=== PATIENT | female | born 1980 | race Caucasian/White ===

== ENCOUNTER 2017-09-17 01:06 | Observation (INO) | payer BC ==
[~2017-09-17] VITALS: Ht 170.2 cm; Wt 90.7 kg
[~2017-09-17 01:06] MED LIST: ESCI20TA38 PO; IBU800 PO; PER PO; TRET20CR37 TP
[2017-09-17] MEDS ORDERED: MIDAZOLAM 2 MG/2 ML VIAL IVP ONE (06:30)
[2017-09-17] MEDS ORDERED: cefOXitin/DEX(*) 2GM/50ML PREM 50 ML IVPB ONE (06:30)
[2017-09-17] MEDS ORDERED: PHENAZOPYRIDINE 200 MG TAB PO ONE (06:30)
[2017-09-17] MEDS ORDERED: LIDOCAINE/SOD BICARB 8.4% SYR ID ONE (06:30)
[2017-09-17] MEDS ORDERED: FAMOTIDINE 20 MG TAB PO ONE (06:30)
[2017-09-17] MEDS ORDERED: NORMOSOL R SOLN(*) 1000 ML BAG 1,000 ML IV PRN (06:30)
[2017-09-17 11:36] LABS: PLATELET COUNT, AUTOMATED 296 K/uL (150-450)
[2017-09-17] MEDS ORDERED: FAMOTIDINE(*) 20MG/50ML PREMIX 50 ML IVPB ONE (12:10)
[2017-09-17] MEDS ORDERED: ROPIVACAINE 0.2% 20 ML VIAL ONE (12:39)
[2017-09-17] MEDS ORDERED: NS(*) 0.9% 250 ML BAG 250 ML ONE (12:40)
[2017-09-17] MEDS ORDERED: VASOPRESSIN 20 UNIT/ML VIAL ONE (12:40)
[2017-09-17] MEDS ORDERED: fentaNYL CITR 250 MCG/5 ML AMP ONE (12:53)
[2017-09-17] MEDS ORDERED: LIDOCAINE 2% IV 100 MG/5ML SYR ONE (12:55)
[2017-09-17] MEDS ORDERED: DEXAMETHASONE SOD 4 MG/ML VIAL ONE (13:05)
[2017-09-17] MEDS ORDERED: ONDANSETRON 4 MG/2 ML VIAL ONE (13:06)
[2017-09-17] MEDS ORDERED: KETOROLAC 30 MG/ML VIAL ONE (13:06)
[2017-09-17] MEDS ORDERED: fentaNYL CITR 100 MCG/2 ML AMP ONE ×4 (13:31→15:43)
[2017-09-17] MEDS ORDERED: SUGAMMADEX SOD 200 MG/2 ML SDV ONE (14:33)
--- NOTE | 2017-09-17 15:06 | Post Operative Note ---
Operative Note - MONOLOGIST Operative Day Date: Sep 17, 2017 Time: 15:05 Physicians Surgeon: Page Manager Regional: Mary Anesthesia: GETA Diagnosis Pre-Op Diagnosis: Menorrhagia Post-Op Diagnosis: same Procedure Procedure(s): JOHN BS [facility] Cysto Specimen Removed:(Maybe N/A): uterus Complications: [id number] Fluids Fluids: 1700 ml Estimated Blood Loss: <100 Dictated Date OP Note Dictated: Sep 17, 2017 Time OP Note Dictated: 15:06 Copies to: PHILIPP HUFFMAN MD, TRAVIS MD Sep 17, 2017 15:06
[2017-09-17] MEDS ORDERED: ZOLPIDEM TARTRATE 10 MG TAB PO PRN (15:10)
[2017-09-17] MEDS ORDERED: PROMETHAZINE 25 MG/ML 1 ML AMP IVP PRN (15:10)
[2017-09-17] MEDS ORDERED: ACETAMINOPHEN 325 MG TAB PO PRN (15:10)
[2017-09-17] MEDS ORDERED: SIMETHICONE 80 MG CHEW CHEW PRN (15:10)
[2017-09-17] MEDS ORDERED: HYDROmorphone HCL 2 MG TAB PO PRN (15:10)
[2017-09-17] MEDS ORDERED: ONDANSETRON 4 MG/2 ML VIAL IV PRN (15:10)
[2017-09-17] MEDS ORDERED: BELLADONNA ALK/OPIUM 60MG SUPP PR ONE ×2 (15:17→21:00)
[2017-09-17 16:15] VITALS: BP 126/83
[2017-09-17 16:30] VITALS: BP 127/80
[2017-09-17 16:45] VITALS: BP 129/78
[2017-09-17] MEDS: DLR(*) 1000 ML BAG 1,000 ML IV PRN ×2 (16:52→23:10)
[2017-09-17 17:00] VITALS: BP 133/81
[2017-09-17 17:17] VITALS: BP 131/83
[2017-09-17] MEDS: KETOROLAC 30 MG/ML VIAL IVP SCH (18:39)
[2017-09-17 19:30] VITALS: BP 130/83
--- NOTE | 2017-09-17 19:58 | OPERATIVE REPORT 1 ---
EVENT DATE: September 17, 2017 SURGEON: Sylvester Abel MD ANESTHESIOLOGIST: Alin Thomas MD ANESTHESIA: General endotracheal. CREW LEADER/CONTROL ROOM OPERATOR: Hardik Hernandez MD PREOPERATIVE DIAGNOSES 1. Menorrhagia. 2. Desired sterilization. 3. Previous section times two. POSTOPERATIVE DIAGNOSES 1. Menorrhagia. 2. Desired sterilization. 3. Previous section times two. PROCEDURES PERFORMED 1. Laparoscopic-assisted vaginal hysterectomy. 2. Bilateral salpingectomy. 3. Modified Fox culdoplasty. 4. Diagnostic cystoscopy. ESTIMATED BLOOD LOSS Less than 100 mL. FLUIDS Crystalloid 1700 mL IV. FINDINGS Enlarged uterus with boggy appearance and some white discoloration to the serosa. Both tubes were previously ligated, and the ovary was adherent to the tubes. Normal-appearing pelvis otherwise. PROCEDURE IN DETAIL The patient was brought to the operating room with a working IV and placed in the dorsal supine position. She was placed under general endotracheal anesthesia and then moved to the dorsal lithotomy position. She was prepped and draped in the usual sterile fashion. A weighted speculum was placed in the vagina. The cervix was grasped on the anterior lip with a single-toothed tenaculum. It was carefully sounded to a depth of 11 cm. The size 10 SUSANNE uterine manipulator was selected and assembled. The cervix was carefully dilated to accommodate, and it was then passed through the cervix into the uterus. The bulb was inflated and secured, and all other instruments were then removed. A Griffin catheter was placed. The legs were brought back to the supine position, and gloves were changed. The umbilicus was infiltrated with 0.2% Naropin. A 5 mm stab incision was made. A Veress needle was passed through this incision while elevating and stabilizing the anterior abdominal wall. A pneumoperitoneum was created through to an intra-abdominal pressure of 20 mmHg. This was reduced to 15 mmHg after all ports had been placed. The Veress needle was removed. A 5 mm bladeless trocar was passed through the umbilical incision under direct visualization with the scope and while stabilizing the anterior abdominal wall. It was performed without incident in a controlled fashion. The same procedure was followed on two additional 5 mm ports placed in the right and left lower quadrants utilizing a similar technique. The patient was then moved to the treatment position. The abdomen and pelvis were surveyed with the above findings noted. The left fallopian tube while adherent to the ovary was carefully dissected away from that ovary using the Gyrus device until the mesosalpinx was free. It was dissected away from the pelvis through the mesosalpinx up to the utero-ovarian ligament. This was then cauterized with the Gyrus device and transected, including the round ligament on this side. This opened the broad ligament which was into anterior and posterior leaflets. The anterior leaflet was followed along the anterior uterus, and careful dissection in that location was performed to dissect the bladder away from the operative area. The bladder was pushed back exposing the cervix. The posterior leaflet of the broad ligament was taken down , exposing the uterine vasculature which was cauterized. The same procedure was followed on the contralateral side, dissecting the fallopian tube away from the ovary, freeing up the mesosalpinx, dissecting through this mesosalpinx, and excising the tube away from the pelvis up to the utero-ovarian ligament which was cauterized and transected. The round ligament was then cauterized and transected, exposing the broad ligament also on this side. It was into anterior and posterior leaflets. The anterior leaflet was dissected along to the anterior bladder reflection. The posterior leaflet was taken down to uterosacral ligament exposing the uterine vasculature which was cauterized. No complications at this point. The pelvis was irrigated. The instruments were removed. The pneumoperitoneum was released. The instruments were secured to the patient's abdomen, and we proceeded laparoscopically placing the patient back in the lithotomy position. The weighted speculum was placed in the vagina. The cervix was grasped with Lisa clamps on the anterior and posterior lip and circumferentially injected with a diluted Pitressin solution. A circumferential incision was made with the Bovie, and the posterior vagina was grasped with the Emilio and put on stretch. The posterior cul-de-sac was then entered sharply using the curved Chisholm scissors. The long-billed weighted speculum was inserted here, and this exposed the uterosacral ligaments which were bilaterally clamped, cut, and suture ligated with Vicryl suture type. These were tagged for later identification. Anteriorly then, sharp dissection was performed to dissect the vaginal mucosa away from the cervix until I had reached the anterior dissection. A right-angle retractor was inserted here, retracting the bladder well away from the operative area. This exposed the cardinal ligaments which were bilaterally clamped, cut, and suture ligated. The remaining vascular pedicle was isolated, clamped, cut, and the specimen was removed and sent to Pathology. The remaining pedicle was suture ligated, although there was still bleeding on the left side which received an additional [id number] stitch and a light amount of cautery for hemostasis. At this point, a modified Fox culdoplasty was performed by securing the ipsilateral uterosacral ligament to the vaginal mucosa and placing external Fxo stitches obliterating the cul-de-sac. The parietal peritoneum was repaired using 2-0 Vicryl in a running pursestring stitch, and the vagina was closed with a 2-0 Vicryl Plus in a running locking stitch. All operative sites were hemostatic at this point. The Griffin catheter was removed, and diagnostic cystoscopy was performed, visualizing the entire bladder and finding it to be without complication. Both ureters were visualized, and excellent urine jets were observed on both sides. The bladder was again drained. All instruments were then removed from the vagina. The legs were brought back to the supine position. Gloves were changed. We proceeded again laparoscopically, reinsufflating the abdomen, and inspecting the surgical results through the laparoscope. All pedicles were hemostatic. The pelvis was irrigated and suctioned dry. No visible complications; therefore, the procedure was terminated. All instruments were removed after suctioning out the pneumoperitoneum. Skin incisions were repaired with a 4-0 Monocryl simple subdermal and covered with Dermabond skin adhesive. She tolerated the procedure well. Sponge, lap, needle, and instrument counts were all correct times three. She was awakened from general anesthesia in stable condition. GHAZAL
[2017-09-17] MEDS: FAMOTIDINE 20 MG TAB PO SCH (20:28)
[2017-09-17] MEDS: DOCUSATE CALCIUM 240 MG CAP PO SCH (20:28)
[2017-09-17] MEDS ORDERED: HYDROmorphone HCL 2 MG TAB PO ONE (21:30)
[2017-09-17] MEDS ORDERED: HYDROmorphone PCA 6 MG/30 ML IV PRN (21:45)
[2017-09-18 00:58] VITALS: BP 116/69
[2017-09-18] MEDS: KETOROLAC 30 MG/ML VIAL IVP SCH ×2 (01:04→07:46)
[2017-09-18 03:09] VITALS: BP 113/63
[2017-09-18 06:07] LABS: PLATELET COUNT, AUTOMATED 251 K/uL (150-450)
[2017-09-18] MEDS ORDERED: DLR(*) 1000 ML BAG 1,000 ML IV PRN (06:07)
[2017-09-18] MEDS: DLR(*) 1000 ML BAG 1,000 ML IV PRN (06:07)
--- NOTE | 2017-09-18 06:09 | OB/GYN Progress Note ---
OB Subjective Progress Notes Subjective Doing well. Was in a lot of pain earlier but controlled with DIRECTOR REPORT now. Nauseated earlier but resolved now. Has tolerated crackers well. GI: NEG Nausea : Voiding Well (some hesitancy but feels like she is emptying) Pain: Mild (currently) OB Objective Physical Exam Vital Signs Date Time Temp Pulse Resp B/P (MAP) Pulse Ox O2 Delivery O2 Flow Rate FiO2 09/18/17 05:00 88 09/18/17 04:20 18 09/18/17 03:09 99.1 63 113/63 (80) Nasal Cannula 1.0 General Appearance: Alert/Awake/No Acute Distress Neurological: No Gross deficits Cardiovascular: Normal Rhythm & Peripheral Pulses, Regular Rate and Rhythm Respiratory: No Respiratory Distress, Clear to Auscultation Abdomen: Soft, Non-Tender, Non-Distended Incision: Clean, Dry, Intact, Dermabond Integumentary: Skin Intact without Lesions or Rash Psychological: Alert & Oriented X3, Appropriate Mood & Affect Result Diagram: 09/17/17 1125 Assessment and Plan SAFETY CONSULTANT Plan: Routine Post-Op Care Problems: (1) Status post laparoscopic hysterectomy Assessment & Plan: Will wean back to pills and continue to bladder train today. If continues well and improving will discharge to home later. F/U in 2 weeks. PHILIPP HUFFMAN MD Sep 18, 2017 06:09
[2017-09-18] MEDS ORDERED: IBUP800T37 PO (06:11)
[2017-09-18] MEDS ORDERED: PER PO (06:11)
[2017-09-18] MEDS ORDERED: HYDR2TAB4 PO (06:11)
--- NOTE | 2017-09-18 06:12 | Short(Outpt) Discharge Summary ---
Discharge Summary Reason for Hosp/Final Diag: (1) Status post laparoscopic hysterectomy Hospital Course & Plan: Will wean back to pills and continue to bladder train today. If continues well and improving will discharge to home later. F/U in 2 weeks. Departure Discharge to: Home, Self Care Discharge Instructions Home Meds Active Scripts Oxycodone/Acetaminophen (OXYCODONE/ACETAMINOPHEN 5MG/325 MG) 5 Mg/325 Mg Tab, 1- 2 TAB PO Q4H Y for PAIN, #30 TAB 0 Refills Prov:PHILIPP ABEL MD 09/18/17 Hydromorphone Hcl (HYDROMORPHONE HCL) 2 Mg Tablet, 2 MG PO Q4H Y for PAIN, #14 TAB 0 Refills Prov:PHILIPP ABEL MD 09/18/17 Tretinoin 0.025% Cream (TRETINOIN 0.025% CREAM) 20 Gm Cream..g., 20 GM TP QHS for 30 Days, #1 TUB 2 Refills Prov:CHAITANYA MENA 08/07/17 Reported Medications Escitalopram Oxalate (LEXAPRO) 20 Mg Tablet, 10 MG PO QDAY, TAB 09/10/17 Follow up Referrals: FITTING SUPERVISOR - In Two Weeks @ [facility] with Philipp Abel Md Diet: Regular Activity: As Tolerated Copies to: PHILIPP ABEL MD, TRAVIS MD Sep 18, 2017 06:12
[2017-09-18 07:15] VITALS: BP 113/64
[2017-09-18] MEDS ORDERED: INFLUENZA VIRUS VAC 0.5 ML SYR IM ONLY ONE (09:00)
[2017-09-18] MEDS: FAMOTIDINE 20 MG TAB PO SCH (09:04)
[2017-09-18] MEDS: DOCUSATE CALCIUM 240 MG CAP PO SCH (09:04)
[2017-09-18 09:15] VITALS: Ht 170.2 cm; Wt 90.7 kg
[2017-09-18] MEDS ORDERED: ROCURONIUM BROM 10 MG/ML 10 ML ONE (12:34)
[2017-09-18] MEDS ORDERED: IBUPROFEN 800 MG TAB PO PRN (13:00)
== END 2017-09-18 06:11 | disposition home or self-care (01) ==
LOC: OR 01:06 → UNDOADMOB 16:14 → PED 16:14
PROVIDERS: ADMIT Obstetrics & Gynecology; ATTEND Obstetrics & Gynecology
DX: Z30.2 Encounter for sterilization (principal); N92.0 Excessive and frequent menstruation with regular cycle
CPT/HCPCS: 36415; 58552; 84703; 85025; 88307; G0378; J0694; J1100; J1885; J2001; J2250; J2405; J2550; J2795; J3010; J3490; J7050

== ENCOUNTER 2017-09-18 20:30 | Emergency (ER) | payer BC ==
[~2017-09-18] VITALS: Ht 170.2 cm; Wt 88.5 kg
[2017-09-18 09:15] VITALS: Ht 170.2 cm; Wt 88.5 kg
[~2017-09-18 20:30] MED LIST changes: +HYDR2TAB4 PO; +IBUP800T37 PO
--- NOTE | 2017-09-18 20:37 | ER Report ---
History and Physical Time Seen By MD: 20:37 HPI/ROS CHIEF COMPLAINT: Trouble urinating post-operative HISTORY OF PRESENT ILLNESS: This is a 37 year old female. She had a laparoscopic assisted hysterectomy today. She had a little trouble urinating post-operatively, but was eventually able to go home. She has been able to urinate a little bit at a time throughout the day, but has been feeling more and more distended. No fevers or chills. Some pain associated with the distention. Normal post-operative course otherwise. Allergies: Coded Allergies: No Known Drug Allergies (Unverified , 09/10/17) Home Meds Active Scripts Oxycodone/Acetaminophen (OXYCODONE/ACETAMINOPHEN 5MG/325 MG) 5 Mg/325 Mg Tab, 1- 2 TAB PO Q4H Y for PAIN, #30 TAB 0 Refills Prov:PHILIPP ABEL MD 09/18/17 Ibuprofen (IBUPROFEN) 800 Mg Tablet, 800 MG PO Q8H Y for PAIN, #30 TAB 0 Refills Prov:PHILIPP ABEL MD 09/18/17 Hydromorphone Hcl (HYDROMORPHONE HCL) 2 Mg Tablet, 2 MG PO Q4H Y for PAIN, #14 TAB 0 Refills Prov:PHILIPP ABEL MD 09/18/17 Tretinoin 0.025% Cream (TRETINOIN 0.025% CREAM) 20 Gm Cream..g., 20 GM TP QHS for 30 Days, #1 TUB 2 Refills Prov:CHAITANYA MENA NPC 08/07/17 Reported Medications Escitalopram Oxalate (LEXAPRO) 20 Mg Tablet, 10 MG PO QDAY, TAB 09/10/17 Reviewed Nurses Notes: Yes Hx Smoking: No Smoking Status: Never Smoker Exposure to Second Hand Smoke?: No Hx Alcohol Use: No Constitutional Vital Sign - Last 24 Hours 09/18/17 09/18/17 20:45 22:23 Temp 98.4 98.4 Pulse 64 69 Resp 17 19 B/P (MAP) 125/86 121/65 (83) Pulse Ox 93 98 O2 Delivery Room Air Intake and Output 09/18/17 09/18/17 09/19/17 15:00 23:00 07:00 Output Total 200 ml Balance -200 ml Physical Exam General: Alert, no acute distress Abdomen: Discomfort in suprapubic area with palpation. Catheter placed by nursing. Medical Decision Making Data Points Laboratory Hematology Test 09/18/17 21:27 Urine Color Yellow Urine Clarity Clear Urine pH 5.0 pH (4.8-9.5) Urine Specific [place] 1.013 Urine Protein Negative mg/dL (NEGATIVE) Urine Glucose (UA) Negative mg/dL (NEGATIVE) Urine Ketones Negative mg/dL (NEGATIVE) Urine Blood Small (NEGATIVE) Urine Nitrite Negative (NEGATIVE) Urine Bilirubin Negative (NEGATIVE) Urine Urobilinogen Negative mg/dL (0.2-1.9) Urine Leukocyte Esterase Negative (NEGATIVE) Urine RBC 2 /HPF (0-2/HPF) Urine WBC 1 /HPF (0-5/HPF) Urine Squamous Epithelial Cells None /LPF (NONE-FEW) Urine Bacteria Negative /HPF (NONE-FEW) Urine Mucus Few /HPF (NONE-FEW) Chemistry Test 09/18/17 21:27 Urine Color Yellow Urine Clarity Clear Urine pH 5.0 pH (4.8-9.5) Urine Specific [place] 1.013 Urine Protein Negative mg/dL (NEGATIVE) Urine Glucose (UA) Negative mg/dL (NEGATIVE) Urine Ketones Negative mg/dL (NEGATIVE) Urine Blood Small (NEGATIVE) Urine Nitrite Negative (NEGATIVE) Urine Bilirubin Negative (NEGATIVE) Urine Urobilinogen Negative mg/dL (0.2-1.9) Urine Leukocyte Esterase Negative (NEGATIVE) Urine RBC 2 /HPF (0-2/HPF) Urine WBC 1 /HPF (0-5/HPF) Urine Squamous Epithelial Cells None /LPF (NONE-FEW) Urine Bacteria Negative /HPF (NONE-FEW) Urine Mucus Few /HPF (NONE-FEW) Urinalysis Test 09/18/17 21:27 Urine Color Yellow Urine Clarity Clear Urine pH 5.0 pH (4.8-9.5) Urine Specific [place] 1.013 Urine Protein Negative mg/dL (NEGATIVE) Urine Glucose (UA) Negative mg/dL (NEGATIVE) Urine Ketones Negative mg/dL (NEGATIVE) Urine Blood Small (NEGATIVE) Urine Nitrite Negative (NEGATIVE) Urine Bilirubin Negative (NEGATIVE) Urine Urobilinogen Negative mg/dL (0.2-1.9) Urine Leukocyte Esterase Negative (NEGATIVE) Urine RBC 2 /HPF (0-2/HPF) Urine WBC 1 /HPF (0-5/HPF) Urine Squamous Epithelial Cells None /LPF (NONE-FEW) Urine Bacteria Negative /HPF (NONE-FEW) Urine Mucus Few /HPF (NONE-FEW) ED Course/Re-evaluation ED Course Catheter placed, 200cc urine output. Clear yellow color. Urinalysis does not show signs of infection. B&O suppository used to help with any discomfort or spasming symptoms. Decision to Disposition Date: Sep 18, 2017 Decision to Disposition Time: 22:13 Depart Departure Latest Vital Signs Vital Signs Date Time Temp Pulse Resp B/P (MAP) Pulse Ox O2 Delivery O2 Flow Rate FiO2 09/18/17 22:23 98.4 69 19 121/65 (83) 98 Room Air Impression: Primary Impression: Postoperative urinary retention Condition: Improved Disposition: HOME OR SELF-CARE Referrals: PHILIPP ABEL MD (PCP) Patient Instructions: Acute Urinary Retention in Women (ED) Additional Instructions: Call Dr. Abel's office tomorrow to arrange a follow-up visit with then in the office for re-evaluation. LUIS CARPENTER MD Sep 18, 2017 20:37
[2017-09-18] MEDS ORDERED: BELLADONNA ALK/OPIUM 60MG SUPP PR ONE (20:45)
[2017-09-18 22:23] VITALS: BP 121/65
== END 2017-09-18 22:27 | disposition home or self-care (01) ==
LOC: ER 20:33
DX: R33.9 Retention of urine, unspecified (principal)
CPT/HCPCS: 81001; 87088; 99282

== ENCOUNTER → 2017-11-24 | Outpatient (CLI) | payer BC ==
[2017-09-18 09:15] VITALS: BMI 31.3
[~2017-11-24] MED LIST changes: +CLIN25GE3 TP
== END ==
LOC: LAB 11-17 09:18
DX: Z00.5 Encounter for examination of potential donor of organ and tissue (principal)
CPT/HCPCS: 36415; 81001; 82043; 82465; 82570; 82575; 82947; 83718; 84156; 84478; 86900; 86901